=== PATIENT | male | born 1995 | race Caucasian/White ===

== ENCOUNTER 2021-08-18 05:59 | Emergency (ER) | payer SELFPAY ==
[~2021-08-18] VITALS: Ht 165.1 cm; Wt 63.5 kg
[2021-08-18 06:01] VITALS: BP_SYST 108
[2021-08-18 06:09] VITALS: BP_SYST 108
== END 2021-08-18 06:09 ==
LOC: SED 05:59
DX: Z02.89 Encounter for other administrative examinations (principal)
CPT/HCPCS: 99283